=== PATIENT | male | born 1945 | race Caucasian/White ===

== ENCOUNTER → 2017-03-21 | Outpatient (CLI) | payer MEDICARE, MEDICAID ==
[~2017-03-21] MED LIST: ADULT LOW DOSE81 MG PO; ALOE VERA170 GM TOP; ANUSOL-HC CREAM30 GM R; ARICEPT10 MG PO; ARTHRITIS PAI42.5 GM TOP; BETAPACE120 MG PO; BIOFREEZE89 ML TOP; BRILINTA90 MG PO; EFFEXOR XR75 MG PO; ELOCON15 GM TOP; FLOMAX0.4 MG PO; GENTEAL TEARS 015 ML OPHTH; GOLD BOND MEDI283 G1 TOP; HYDROCODON-ACE1 EAC6 PO; IMODIUM MULTI-1 EACH PO; LANTUS SOL100 UNIT/1 SUB-Q; LASIX20 MG PO; LEVALBUTER0.63 MG/3 INH; LIPITOR20 M1 PO; LOPID600 MG PO; LOTRISONE15 GM TOP; LYRICA 150MG C150 MG PO; MELATONIN10 M2 PO; METFORMIN HCL500 MG PO; MILK OF MA400 MG/5 M PO; MYCOSTATIN CR15 GM TOP; MYLANTA (MAG-AL30 ML PO; NEURONTIN100 MG PO; NEURONTIN300 MG PO; NEURONTIN600 MG PO; NITROSTAT0.4 MG SL; NOVOLOG FL100 UNIT/1 SUB-Q; PEPCID20 MG PO; PREPARATION H C51 G1 R; PULMICORT0.5 MG/21 INH; SALINE NASAL SP88 ML NOSE; SEROQUEL25 MG PO; TOPICORT LP TOP; TRAZODONE HCL50 MG PO; TUMS200 MG PO; TYLENOL EXTRA500 MG PO; VICKS VAPORUB O50 GM TOP; ZOFRAN4 MG PO; [UNRECOGNIZED DRUG - OTHER] NOSE; [UNRECOGNIZED DRUG - OTHER] OTIC; [UNRECOGNIZED DRUG - OTHER] PO; [UNRECOGNIZED DRUG - OTHER] PO; [UNRECOGNIZED DRUG - OTHER] TOP; [UNRECOGNIZED DRUG - OTHER] TOP
--- NOTE | ~2017-03-21 | NDGEN ---
PATIENT'S NAME: CORBIN ALMARAZ [facility] AGE: 71 Y [address] ROOM: [place] [address] LOCATION: [facility] ADMIT DATE: 03/21/2017 Neurodiagnostics DISCHARGE DATE: FAMILY PHYSICIAN: Gabi Pastrana MD ATTENDING PHYSICIAN: CYDNEY YAÑEZ DATE OF PROCEDURE: 03/21/2017 PROCEDURE PERFORMED: Four-limb nerve conduction study in bilateral upper and lower extremities with needle EMG to rule out median neuropathy, polyneuropathy of the extremities. INDICATION FOR PROCEDURE: Mr. Corbin Almaraz is a 71-year-old male patient, who has difficulty walking with extreme difficulty in proprioception, inability to feel the bottom of his feet, also with pain into his feet with numbness. This is believed to be due to a history of diabetes. Furthermore, he has numbness typical of carpal tunnel syndrome in the bilateral upper extremities. These studies today were done to rule out evidence for a median neuropathy at the wrists as well as to look for the type of neuropathy of the lower extremity be that as an axonal neuropathy or demyelinating neuropathy. PROCEDURE IN DETAIL: Nerve conduction studies were performed in the bilateral median and ulnar nerves of the upper extremities, and the bilateral peroneal motor and tibial motor nerves of the lower extremities as well as the sensory, median, and ulnar nerves of the upper extremities, and sural sensory nerves of the bilateral lower extremities. There was complete absence of sensory nerve action potentials of the bilateral upper extremities and the bilateral lower extremities. Furthermore, there was absence of compound motor action potential seen in the bilateral ulnar nerves in the upper extremities and the peroneal and tibial motor nerves. The only compound motor action potentials that were seen were delved from the bilateral median nerves at the wrists. There was severe demyelinative slowing at the wrists with prolongation of motor onset latencies at 8.1 milliseconds in the left hand and 6.6 milliseconds in the right hand. Amplitudes were also low at one point with amplitudes of 1.9 mV in the left median nerve and 2.7 mV in the right median nerve. The nerve conduction velocities were borderline around 40 m/sec bilaterally. The needle was placed into the bilateral abductor pollicis brevis muscle. There were extreme amounts of fibrillation potentials and positive sharp waves PATIENT'S NAME: CORBIN ALMARAZ [facility] AGE: 71 Y [address] ROOM: [place], [place] [address] LOCATION: [facility] ADMIT DATE: 03/21/2017 Neurodiagnostics DISCHARGE DATE: FAMILY PHYSICIAN: Gabi Pastrana MD ATTENDING PHYSICIAN: CYDNEY YAÑEZ seen in the right hand, the right hand thenar eminence as well as decreased recruitment of motor unit action potentials on voluntary recruitment. In the left hand though there was no evidence for fibrillation or positive sharp waves, diminished recruitment was also seen. 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 The patient's diabetes has probably accelerated his carpal tunnel syndrome. He has active evidence of spontaneous electrical activity of fibrillations and positive sharp waves seen in the thenar eminence consistent with active demyelinative with active injury to the median nerves. There was some mild decreased recruitment of motor unit action potentials, which should victor manuel well for the patient making a good recovery after carpal tunnel release surgery. The rest of the nerve conduction studies were all consistent with either a severe axonal neuropathy or demyelinative slowing of the nerves tested. It Is impossible to tell which is the current process as there was complete absence of compound motor action potentials and sensory nerve action potentials. MD AFTAB ARRIAGA/modl /[id number] dtt: 03/31/17 1306 , CYDNEY YAÑEZ. dtd: 03/21/17 2314
== END | disposition disaster alternative care site (69) ==
LOC: GNEU 14:14
DX: E11.42 Type 2 diabetes mellitus with diabetic polyneuropathy (principal); G56.03 Carpal tunnel syndrome, bilateral upper limbs

== ENCOUNTER → 2017-05-27 | Outpatient (CLI) | payer MEDICARE, MEDICAID ==
--- NOTE | ~2017-05-27 | ESTC ---
Cardiac Perfusion Imaging Demographics Patient Name LICO Bashir Gender Male Patient Number [id number] Race Visit Number [id number] Ethnicity Corporate ID Room Number Accession Number [id number] Height Date of 1945 Weight Age 71 year(s) BSA Referring Physician Jing Navarro MD BMI Victoriano Canales MD Interpreting Jing Navarro MD Date of study 05/27/2017 Physician Supervising /JOCY JAMES Technologist [facility] NEMO Webb Ordering Physician Stress oxygen therapy technician Stress ECG Reading Kiana Smith Nurse Trever Plasencia Physician NEMO Canales RN Procedure Procedure Type: Nuclear Stress Test:Pharmacological, Lexiscan, Cardiolite Stress Test Procedure Start time: 05/27/2017 09:31 Indications: Shortness of breath. Risk Factors The patient risk factors include:prior CABG;obesity, cerebrovascular disease, Current/Recent(w/in 1 year) tobacco use, hypercholesterolemia, hypertension, family history of premature CAD and dyslipidemia. Conclusions Summary Cardiolite SPECT images demonstrate a moderate sized area of moderate to severe reversible defect involving the inferolateral wall. No evidence of underlying fixed defect. Normal TID ratio Gated images demonstrate mild to moderate hypokinesis of the above mentioned regions, LVEF is 32% Stress Protocols Resting ECG Atrial fibrillation with LBBB Resting HR:70 bpm Resting BP:160/72 mmHg Pre-stress physical exam: Had complained of chest pain and shortness of breath at rest. He is wheel chair patient so Lexiscan was done. Stress Protocol:Pharmacologic Peak HR:76 bpm HR response: Appropriate Peak BP:155/60 mmHg BP response: Appropriate Predicted HR: 147 bpm HR/BP product:50990 % of predicted HR: 52 Reason for termination:Infusion complete ECG Findings Indeterminate ECG due to baseline abnormalities. Arrhythmias No rhythm abnormality. Symptoms No symptoms with Lexiscan infusion. Stress Interpretation Appropriate hemodynamic response to Lexiscan. No significant ST-T wave changes with Lexiscan. ECG portion is negative for ischemia by diagnostic criteria. Stress supervision and interpretation provided by Dluce Bruno APRN . Imaging Results Summed scores - Summed stress score: 24 - Summed rest score: 21 - Summed difference score: 3 Stress ejection Ejection fraction:32 % EDV :181 ml ESV :123 ml Stroke volume :58 ml LV mass :194 gr Imaging Protocols Rest Stress Isotope:Tc99m Sestamibi IV Isotope: Tc99m Sestamibi IV Isotope dose:16.5 mCi Isotope dose:47.1 mCi Date:05/27/2017 08:20 Date:05/27/2017 09:44 Technique: SPECT Technique: Gated Supine SPECT Supine Scan Time:45-60 minutes post Scan Time:45-60 minutes post injection injection Procedure Medications - Regadenoson (Lexiscan) 0.4 mg IV over 10-15 sec. I.V. 0.4 mg. Medications administered per verbal order and read back to physician prior to administration. Medical History Admission Data Admission date: 05/27/2017 Admission Time: 07:56 Hospital Status: Outpatient. Signatures dtt: Ramon Ch (cardio) dtd: 05/27/17 0931 Physician Self Edit
== END | disposition disaster alternative care site (69) ==
LOC: GRAD 07:45
DX: R06.02 Shortness of breath (principal)
CPT/HCPCS: A9500; J2785

== ENCOUNTER 2017-06-10 06:56 | Outpatient (CLI) | payer MEDICARE, MEDICAID ==
[~2017-06-10] VITALS: Ht 182.9 cm; Wt 139.4 kg
--- NOTE | ~2017-06-10 | CATH ---
Cardiac Diagnostic + PCI Report Demographics Patient Name LICO Bashir Gender Male Date of 1945 Age 71 year(s) Patient Number [id number] Date of Study 06/10/2017 Visit Number [id number] Room Number [id number] [place] [id number] Ht 182.88 cm Wt 139.4 kg Referring Jing Navarro MD Primary Physician Physician Victoriano Canales MD CNC Performing Jing Navarro MD Secondary Physician Physician Diagnostic Jing Navarro MD Assisting Physician Physician Interventional Jing Navarro MD Physician Licensed Massage Practitioner Physician Findings and Conclusions Diagnostic Findings and Conclusion 3 vessel CAD High grade lesion SVG to RCA Diagnostic Recommendations PCI of SVG to RCA Interventional Findings and Conclusion 0.014 Prowater 3.5 x 32 Rebel stent to 3.9 mm with 0% residual. Interventional Recommendations Dual antiplatelet therapy for 1 month. Routine post Angioseal. Procedure Description The patient was brought to the diagnostic cardiac catheterization-EP laboratory in the fasting, non-sedated state. Informed consent was obtained in the written and verbal form after the risks and benefits were explained. The patient had no further questions and agreed to proceed. The planned puncture-incision site(s) were shaved and prepped with ChloraPrep and draped in the usual sterile manner. Conscious sedation, supplemental oxygen, and pain control medications were delivered by a registered nurse under physician guidance. Surface ECG rhythm, blood pressure measurement, and pulse oximetry were monitored throughout the procedure. Arterial access. The access site was infiltrated with lidocaine. The vessel was entered with the Seldinger technique. A sheath was advanced into the vessel and used for catheter placement. Selective left coronary angiography. A catheter was advanced into the left coronary vessel ostium under Fluoroscopic guidance. Contrast was injected by hand. Images were obtained in multiple projections. Selective right coronary angiography. A catheter was advanced into the right coronary vessel ostium under fluoroscopic guidance. Contrast was injected by hand. Images were obtained in multiple projections. Selective CASH graft angiography. A catheter was advanced into the left internal mammary graft ostium under fluoroscopic guidance. Contrast was injected by hand. Images were obtained in multiple projections. Selective SVG angiography. A catheter was advanced into the graft proximal anastomosis under fluoroscopic guidance. Contrast was injected by hand. Images were obtained in multiple projections. Stent Placement: A guiding catheter was used to intubate the vessel. A 0.14 wire was used to cross the lesion. A Bare Metal Stent was placed. Post placement angiograms were performed. Arterial artery hemostasis. Hemostasis was achieved. The patient was transferred to a regular nursing floor via cart accompanied by a nurse. The patient left the laboratory in stable condition. Diagnostic Cath Status: Elective Interventional Cath Status: Elective Procedure Procedure Type Diagnostic procedure:Angiography:, Coronary Angios PCI procedure:Bare Metal Coronary Stent:, Graft Indications: Positive Nuclear: Intermediate and History of CABG. The procedure was explained in detail to the patient. Risks, complications and alternative treatments were reviewed. Written consent was obtained. Medications Reviewed with Patient prior to Procedure. Angiographic Findings Dominance: Right Cardiac Arteries and Lesion Findings LMCA: Lesion on LMCA: 80% stenosis .The lesion was diffuse. LAD: Lesion on Prox LAD: 100% stenosis . LCx: Lesion on Prox CX: 100% stenosis . RCA: RCA large, dominant, collaterals to LCx. PL medium, normal. PDA competitive flow. Lesion on Mid RCA: 70% stenosis . Graft Lesions Lesion on Aorta Right to Dist RCA: Middle body.90% stenosis 32 mm length reduced to 0%. Pre procedure SUPRIYA III flow was noted. Post Procedure SUPRIYA III flow was present. The lesion was diagnosed as a high risk lesion.The lesion was diffuse.Culprit lesion. Treatment results:Interventional treatment was successful. Devices used - Prowater Wire .014 x 180. Number of passes: 1. - 3.5 x 32 Rebel Stent. 2 inflation(s) to a max pressure of: 15 kaylee. Lesion on Aorta Right to Dist CX: Proximal anastomosis.100% stenosis . Cardiac Grafts - There is a CASH graft that originates at the CASH and attaches to the Dist LAD (Patent). - There is a Vein graft that originates at the Aorta Right and attaches to the Dist RCA (Long lesion.). - There is a Vein graft that originates at the Aorta Right and attaches to the 1st Diag (Large, normal. Sycuan small.). - There is a Vein graft that originates at the Aorta Right and attaches to the Dist CX (100% occluded). Coronary Tree Procedure Data Procedure Date Date: 06/10/2017Start: 09:55 AMEnd: 10:37 AM Entry Locations - Retrograde Percutaneous access was performed through the Right Femoral artery (Primary location). A 6 Fr sheath was inserted. Hemostasis was successfully obtained using Angio-Seal STS PLUS ([place]). Closure Comments: Deployed by Veronica. Procedure Medications Order and Administration + + + + + !Time !Medication !Dosage !Route ! + + + + 06/10/2017 09:53 !Fentanyl !25 mcg !I.V. ! !AM ! ! ! ! + + + + 06/10/2017 09:57 !Fentanyl !25 mcg !I.V. ! !AM ! ! ! ! + + + + 06/10/2017 10:04 !Oxygen !2 l/min !NC ! !AM ! ! ! ! + + + + + 06/10/2017 10:11 !Angiomax (Bivalirudin) !105 mg !I.V. bolus ! !AM !(ACC_5) ! ! ! + + + + + !06/10/2017 10:12 !Angiomax (Bivalirudin) !1.75 mg/kg/hr!I.V. drip ! !AM !(ACC_5) ! ! ! + + + + + !06/10/2017 10:14 !Nipride !50 mcg !I.C. ! !AM ! ! ! ! + + + + + !06/10/2017 10:18 !Nipride !50 mcg !I.C. ! !AM ! ! ! ! + + + + + !06/10/2017 10:19 !Nipride !70 mcg !I.C. ! !AM ! ! ! ! + + + + + !06/10/2017 10:23 !Brilinta (Ticagrelor) !180 mg !P.O. ! !AM !(ACC_20) ! ! ! + + + + + !06/10/2017 10:29 !Angiomax (Bivalirudin) !1.75 !I.V. drip ! !AM !(ACC_5) ! ! ! + + + + + Devices Used - A6 Fr. BS JL 4 Diag. Catheterwas used for:Left coronary angiography. - A6 Fr. BS JR 4 Diag. Catheterwas used for:Right coronary angiography. - A6 Fr. BS IMT Diag. Catheterwas used for:CASH. - A6 Fr. JR4 Guide Catheterwas used for:SVG Intervention. Contrast Material - Isovue 213175 ml Fluoroscopy Time: Diagnostic: 10:48 minutes. Total: 10:48 minutes. Fluoroscopy Dose: Diagnostic: 2165 mGy. Total: 2165 mGy. Estimated Blood Loss: 5 ml. Additional [facility] PCI Information PCI Indication:PCI for high risk Non-STEMI or unstable angina. Medical History Allergies - No known allergies. Risk Factors The patient risk factors include: prior CABG on 10/16/1998;treated hypercholesterolemia, treated hypertension, insulin-treated diabetes mellitus, last creatinine: 0.8 mg/dl, creatinine clearance: 162.15 ml/min, dyslipidemia and prior heart failure . Admission Data Admission Date: 06/10/2017 Admission Time: 06:56 AM Admit Source: Other Insurance Payors: Medicare. Admission Medications + +------+------+ + + + + !Medication !Dosage!Times !Last !Last !Administered !Comments ! ! ! !Per !Delivery !Delivery ! ! ! ! ! !Day !Date !Time ! ! ! + +------+------+ + + + + !Beta ! ! ! ! !Yes ! ! !Tae ! ! ! ! ! ! ! !(any) ! ! ! ! ! ! ! + +------+------+ + + + + !Aspirin ! ! ! ! !Yes ! ! !(any) ! ! ! ! ! ! ! + +------+------+ + + + + !Statin ! ! ! ! !Yes ! ! !(any) ! ! ! ! ! ! ! + +------+------+ + + + + Clinical Evaluation Leading to Procedure - The patient's CAD presentation was assessed as: Unstable angina. - The patient's anginal syndrome during the past two weeks was assessed as: Class III according to the [place] Cardiovascular Society Classification System (CCS). Anti-anginal medications were prescribed during the past two weeks. The medication is: Beta Blockers. Hemodynamics Condition: Rest O2 Consumption: Estimated: 290.06Heart Rate: 65 bpm Pressures (mmHg) +-----+ + !Site !Pressure ! +-----+ + !AO !122/70 (90) ! +-----+ + !AO !94/44 (57) ! +-----+ + !AO !141/79 (105) ! +-----+ + Shunts Oxygen Values O2 Capacity 191.76 O2 Consumption 290.06 Signatures dtt: Ramon Ch (cardio) dtd: 06/10/17 0955 Physician Self Edit
[~2017-06-10 06:56] MED LIST changes: -BRILINTA90 MG PO
--- NOTE | 2017-06-10 16:29 | NUR ---
Significant Event: A/OX3, VSS ON ROOM AIR. SLIV TO L)FA. NO PAIN/CHEST PAIN. STENT PLACED TO RCA GRAFT SITE, RIGHT GROIN DRESSING IS C/D/I, NO HEMATOMA OR DRAINAGE NOTED. UP SBA TO [employer]. D/C TO HOME IN AM. FAMILY HERE IN ROOM. COMPLAINTS OF SOB WHEN GETTING UP, PT. STARTED ON [place] TODAY. Follow up: CONTINUE WITH POC.
[2017-06-11 04:35] LABS: BASOPHIL # 0.1 K/uL (0.0-0.2); BASOPHIL % 0.9 %; EOSINOPHIL # 0.3 K/uL (0.0-0.5); EOSINOPHIL % 4.8 %; HEMATOCRIT 41.9 % (37.0-53.0); IMMATURE GRANULOCYTE % 0.3 %; LYMPHOCYTE # 1.5 K/uL (0.8-4.0); LYMPHOCYTE % 22.8 %; MCH 30.6 pg (27.0-34.0); MCHC 33.4 gm/dL (32.0-36.5); MCV 91.5 fl (83.0-98.0); MONOCYTE # 0.5 K/uL (0.0-1.0); MONOCYTE % 7.3 %; MPV 11.2 fl (9.4-12.4); NEUTROPHIL # (ANC) 4.1 K/uL (1.4-9.0); NEUTROPHIL % 63.9 %; NRBC % 0 /100WBC (0-0.00); PLATELET COUNT 139 K/uL (150-450); RBC 4.58 M/uL (3.50-5.50); RDW-CV 14.8 % (11.9-14.6); WBC 6.4 K/uL (4.0-11.0)
[2017-06-11 04:57] LABS: ALBUMIN 3.3 gm/dL (3.5-5.0); ANION GAP 10.6 (10.0-19.0); CALCIUM 8.9 mg/dL (8.5-10.5); CREATININE 0.9 mg/dL (0.6-1.3); POTASSIUM 3.6 mMol/L (3.7-5.1); TOTAL BILIRUBIN 0.7 mg/dL (0.0-1.5); TOTAL PROTEIN 7.7 g/dL (6.0-8.4)
--- NOTE | 2017-06-11 05:12 | NUR ---
Significant Event: A/O x3. Afebrile. C/O neuropathy pain. Gave sched geni neurongregorio. VSS on RA. SBP 136-156. HR 60-90s. Up standby assist, uses motorized scooter in room for transfers. Rt groin site C/D/I. Cooperative. Follow up: Plan for discharge today.
[2017-06-11] MEDS ORDERED: BRILINTA90 MG PO (12:40)
--- NOTE | 2017-06-11 13:10 | NUR ---
Significant Event: Patient had right groin access site for heart cath, has gauze and transparent dressing in place, clean/dry/intact. Can remove Tuesday and place bandaid, watch for signs of infection. Vital signs stable. Blood sugar this am 168 and 218 at noon. Denies pain, chest pain, shortness of breath. Daughter and son-in-law present, will transfer back to [facility] today per their transport. Follow up:
--- NOTE | 2017-06-11 14:21 | NUR ---
Patient being dismissed back to [facility] in [place], [place]. Packet including labs, dismissal instructions, medications given to driver license agent. IV and panel monitor DC'd. Patient wheeled himself in electronic scooter to [place] for transport. Verbal report given to [facility] staff.
== END 2017-06-11 12:50 | disposition disaster alternative care site (69) ==
LOC: GPOC 06:56 → GPCU 06:56 → GPOC 07:00 → GPCU 10:24 → GPOC 06-11 12:50
PROVIDERS: Internal Medicine Interventional Cardiology
PROC: 4A023N7 Measurement of Cardiac Sampling and Pressure, Left Heart, Percutaneous Approach (ICD-10-PCS; principal; 2017-06-10)
PROC: B216YZZ Fluoroscopy of Right and Left Heart using Other Contrast (ICD-10-PCS; 2017-06-10)
PROC: B218YZZ Fluoroscopy of Left Internal Mammary Bypass Graft using Other Contrast (ICD-10-PCS; 2017-06-10)
DX: I25.110 Atherosclerotic heart disease of native coronary artery with unstable angina pectoris (principal); E78.00 Pure hypercholesterolemia, unspecified; I10 Essential (primary) hypertension; E11.9 Type 2 diabetes mellitus without complications; E78.5 Hyperlipidemia, unspecified; I48.91 Unspecified atrial fibrillation; R94.31 Abnormal electrocardiogram [ECG] [EKG]; Z95.1 Presence of aortocoronary bypass graft
CPT/HCPCS: C1725; C1760; C1769; C1887; J0583; J1644; J2001; J2250; J3010; J7030; J7060